=== PATIENT | female | born 1940 | race African-American/Black ===

== ENCOUNTER 2024-10-20 22:46 | Emergency (ER) | payer MEDICARE, OTHER ==
[~2024-10-20] VITALS: Ht 162.6 cm; Wt 41.0 kg
--- NOTE | 2024-10-20 23:52 | ED.PDOC ---
Mult. trauma (HPI) HPI Comments 84-YEAR-OLD FEMALE PRESENTS TO THE ED CHIEF COMPLAINT STATUS POST TRIP AND FALL. PT CC LACERATION TO POSTERIOR HEAD S/P FALL. CC 11/25. 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 History Family History Family History: Reviewed,noncontributory to illness Social History Smoker: Non-Smoker Alcohol: Denies ETOH Use Drugs: Denies Drug Use Constitutional: denies: chills, diaphoresis, fatigue, fever, malaise, sweats, weakness, others EENTM: denies: blurred vision, double vision, ear bleeding, ear discharge, ear drainage, ear pain, ear ringing, eye pain, eye redness, hearing loss, mouth pain, mouth swelling, nasal discharge, nose bleeding, nose congestion, nose pain, photophobia, tearing, throat pain, throat swelling, voice changes, others Respiratory: denies: cough, hemoptysis, orthopnea, SOB at rest, shortness of breath, SOB with excertion, stridor, wheezing, others Cardiovascular: denies: chest pain, dizzy spells, diaphoresis, Dyspnea on exertion, edema, irregular heart beat, left arm pain, lightheadedness, palpitations, PND, syncope, others Gastrointestinal: denies: abdomen distended, abdominal pain, blood streaked bowels, constipated, diarrhea, dysphagia, difficulty swallowing, hematemesis, melena, nausea, poor appetite, poor fluid intake, rectal bleeding, rectal pain, vomiting, others Genitourinary: denies: abnormal vagina bleeding, burning, dyspareunia, dysuria, flank pain, frequency, hematuria, incontinence, pain, , vagina discharge, urgency, others Neurological: denies: dizziness, fainting, headache, left sided numbness, left sided weakness, numbness, paresthesia, pre-existing deficit, right sided numbness, right sided weakness, seizure, speech problems, tingling, tremors, weakness, others Musculoskeletal: denies: back pain, gout, joint pain, joint swelling, muscle pain, muscle stiffness, neck pain, others Integumetry: reports: laceration (Occipital scalp); denies: bruises, change in color, change in hair/nails, dryness, lesions, lumps, rash, wounds, others Allergic/Immunocompromised: denies: Difficulty Healing, Frequent Infections, Hives, Itching, others Hematologic/Lymphatic: denies: anemia, blood clots, easy bleeding, easy bruising, swollen glands, others Endocrine: denies: excessive hunger, excessive sweating, excessive thirst, excessive urination, flushing, intolerance to cold, intolerance to heat, unexplained weight gain, unexplained weight loss, others Psychiatric: denies: anxiety, bipolar disorder, depression, hopeless, panic disorder, schizophrenia, sleepless, suicidal, others Physical Exam General Appearance: No Apparent Distress, Normal HEENT: Normal ENT Inspection, Pharynx Normal, TMs Normal Neck: Limited Range of Motion, Tender Lateral Respiratory: Chest Non-Tender, Lungs Clear, No Respiratory Distress, Normal Breath Sounds Cardiovascular: No Edema, No JVD, No Murmur, No Gallop, Normal Peripheral Pulses, Regular Rate/Rhythm Breast Exam: Deferred Gastrointestinal: No Organomegaly, Non Tender, No Pulsatile Mass, Normal Bowel Sounds, Soft Genitalia: Deferred Pelvic: Deferred Rectal: Deferred Extremities: Normal capillary refill, Normal inspection, Normal range of motion, Non-tender, No pedal edema Musculoskeletal : Apperance: Normal Neurologic: Alert, No Motor Deficits, Normal Affect, Normal Mood, No Sensory Deficits Cerebellar Function: Normal Reflexes: Normal Skin: Dry, Lacerations (1/2 inch laceration to occipital scalp bleeding controlled no obvious foreign body), Normal Color, Warm Lymphatic: No Adenopathy Was a procedure done? Was a procedure done?: Yes Sedation Sedation?: No Informed consent obtained: Yes Laceration Repair : Location OCCIPITAL SCALP Length 1.5 IN Anesthetic: LET Laceration Repair Prep: Saline, by Irrigation Laceration Repair Wound Comple: epidermis/dermis repair Laceration Repair: Luca (4 LUCA) Informed consent obtained: Yes Risks, benefits, and alternati: Yes Notes PATIENT TOLERATED WELL MINIMAL BLOOD LOSS Differential Diagnosis Multiple Trauma: Fractures, Spine Injury, Contusion, Hematoma, Laceration X-Ray, Labs, Meds, VS Vital Signs Date Time Temp Pulse Resp B/P (MAP) Pulse Ox O2 Delivery O2 Flow Rate FiO2 10/21/24 03:14 67 11 161/79 (106) 96 10/21/24 01:44 Room Air* 0 21 10/21/24 01:44 97.6 52 9 149/55 (86) 94 97.6 10/20/24 23:48 98.2 64 18 105/62 (76) 98 98.2 10/20/24 23:33 97.6 62 12 107/64 (78) 99 97.6 Current Medications Medications (Trade) Dose Ordered Sig/Rajwinder Route Start Time Stop Time Status Last Admin Acetaminophen/ Hydrocodone Bitart (Graham 5/325MG Tab) 1 tab ONCE ONCE PO 10/21/24 03:00 10/21/24 03:01 DC 10/21/24 02:58 X-Ray, Labs, Meds, VS Comment CT BRAIN SHOWS NO ACUTE BLEED SHOWS A CHRONIC DISEASE PROCESS. CT CERVICAL SPINE SHOWS NO ACUTE FRACTURES OSSEOUS LESIONS SUBLUXATIONS SHOWS CHRONIC DISEASE. PATIENT WAS GIVEN NORCO 5 MG REPORTS IMPROVEMENT IN PAIN AND FUNCTION REQUESTING DISCHARGE AT THIS TIME. [place] PATIENT'S SISTER IS AT BEDSIDE AND WILL BE DRIVING. ADVISED PATIENT WHEN SHE GETS IT TO [place] WITHIN 2 DAYS FOLLOW UP WITH HER PCP. ADVISED SISTER TO MONITOR PATIENT FOR THE NEXT 24- 48 HOURS ANY CHANGE IN MENTATION, LETHARGY SLURRED SPEECH NONSTOP VOMITING OR ANY CONCERNING SYMPTOMS RETURN TO THE ER. ADVISED TO REST INCREASE P.O. FLUIDS WITH ELECTROLYTES. ADVISED ON ER RETURN PRECAUTIONS PATIENT AND SISTER INDICATE UNDERSTANDING AND AGREE WITH DISCHARGE PLAN OF CARE. Time of 1ST Reevaluation: 23:49 Reevaluation 1ST: Unchanged Time of 2ND Reevaluation: 04:49 Reevaluation 2ND: Improved Patient Education/Counseling: Diagnosis, Treatment, Prognosis, Need For Follow Up Family Education/Counseling: Diagnosis, Treatment, Prognosis, Need For Follow Up Departure 1 Departure Time of Disposition: 04:49 Impression: Primary Impression: Status post fall Additional Impressions: Occipital scalp laceration Qualified Codes: S01.01XA - Laceration without foreign body of scalp, initial encounter Headache, post-traumatic, acute Qualified Codes: G44.311 - Acute post-traumatic headache, intractable Disposition: 01 HOME / SELF CARE / HOMELESS Condition: Stable Additional Instructions: Follow up with PCP within 2 days. Staple removal in 7-10 days. Return to the ER for increasing pain weakness numbness fever chills or any concerning symp toms. Rest, increase p.o. fluids with electrolytes. [id number] Tylenol as needed for pain per labeled dosing instructions. Discharged With: Relative (Sibling) Critical Care Note Critical Care Time?: No Stability Stability form required: MONTRELL Campuzano Oct 20, 2024 23:52
[2024-10-21] MEDS: LET TOPICAL SOLN 5 ML TOP ONE
--- NOTE | 2024-10-21 01:32 | DVH ---
CLINICAL HISTORY: s/p fall occipital head injury with lac TECHNIQUE: Helical imaging carried out from skull base to vertex without intravenous contrast. This e xam was performed according to our departmental dose optimization program. Up-to-date CT equipment an d radiation dose reduction techniques are utilized as appropriate. CTDIVol: 59.59 mGy DLP: 1172.79 mGy-cm WID: COMPARISON: None FINDINGS: Generalized cerebral volume loss with concordant prominence of the subarachnoid spaces and ventricles . There is mild patchy low attenuation in the cerebral white matter consistent with nonspecific white matter disease. There is no midline shift or mass effect. The barrera white matter interfaces are maintained. The basal cisterns are patent. There is no evidence of acute intracranial hemorrhage or extra-axial fluid albertina ection. The mastoid air cells and visualized paranasal sinuses are well-aerated aside from mild mucos al thickening of the left sphenoid sinus. Prior right ocular lens replacement. IMPRESSION: No acute intracranial abnormality. Generalized cerebral volume loss and mild chronic microvascular ischemic change.
[2024-10-21 01:44] VITALS: TEMP 97.6
[2024-10-21] MEDS: HYDROcodone-ACET 5/325MG TAB PO ONE (02:58)
--- NOTE | 2024-10-21 04:39 | DVH ---
Examination: CS2 CLINICAL INDICATION: s/p fall neck pain COMPARISON: None. CONTRAST USED: None. TECHNIQUE: The examination was performed obtaining 2 mm slices in the axial plane. Sagittal and 3D re constructions were also obtained. Technique for this CT scan was done using principles of ALARA (As L ow As Reasonably Achievable). Multiplanar reconstructions were obtained. FINDINGS: Alignment and Osseous Structures: The alignment of the cervical spine is maintained. The vertebral herminia dies and posterior elements are unremarkable. There is no fracture or subluxation. No destructive bon y lesion is noted. The pre and paravertebral soft tissues are unremarkable. The atlantoaxial joint is within normal limits. C2-C3: Reduced disc space is noted with endplate sclerosis. A diffuse disc bulge causes indentation o danish the spinal cord. Uncovertebral arthropathy is present. Disc height is within normal limits. There is no significant disc herniation, central canal or neural foraminal narrowing at this level. The fa cet joints and ligamentum flavum are within normal limits. C3-C4: Reduced disc space with endplate sclerosis and mild disc bulge causing spinal cord indentation and bilateral C4 nerve root indentation is observed. Uncovertebral arthropathy is present. Disc heig ht is within normal limits. There is no significant disc herniation, central canal or neural foramina l narrowing. The facet joints and ligamentum flavum are within normal limits. C4-C5: Reduced disc space with endplate sclerosis is seen. Diffuse disc bulge causing spinal cord ind entation is present. Uncovertebral arthropathy is noted. Disc height is within normal limits. There i s no significant disc herniation, central canal or neural foraminal narrowing. The facet joints and l igamentum flavum are within normal limits. C5-C6: Disc height is within normal limits. There is no significant disc herniation, central canal or neural foraminal narrowing. The facet joints and ligamentum flavum are within normal limits. C6-C7: Mild anterolisthesis of C6 over C7 vertebra is seen. Reduced intervertebral disc space with sc lerosis of vertebral endplates and disc osteophyte complex is noted. Diffuse disc bulge causes spinal cord indentation and bilateral C7 nerve root indentation. There is no significant disc herniation, c entral canal or neural foraminal narrowing. The facet joints and ligamentum flavum are within normal limits. C7-T1: Disc height is within normal limits. There is no significant disc herniation, central canal or neural foraminal narrowing. The facet joints and ligamentum flavum are within normal limits. IMPRESSION: 1. Mild anterolisthesis of C6 over C7 vertebra. 2. Diffuse disc bulges at C2-C3, C3-C4, C4-C5, and C6-C7 levels causing spinal cord indentation. 3. Bilateral C4 and C7 nerve root indentations at corresponding levels. 4. Endplate sclerosis and uncovertebral arthropathy noted at C2-C3 to C4-C5 levels. Electronically Signed 10/21/2024 04:37 Bettie Choudhury
[2024-10-21 05:00] VITALS: BP 158/95; PULSE 70; RESP 16; O2SAT 94
== END 2024-10-21 05:17 | disposition home or self-care (01) ==
LOC: ER 22:46
DX: S01.01XA Laceration without foreign body of scalp, initial encounter (principal); G44.311 Acute post-traumatic headache, intractable; W01.0XXA Fall on same level from slipping, tripping and stumbling without subsequent striking against object, initial encounter; Y93.89 Activity, other specified; Y92.89 Other specified places as the place of occurrence of the external cause; Y99.8 Other external cause status
CPT/HCPCS: 12002; 70450; 72125